=== PATIENT | male | born 1975 | race African-American/Black ===

== ENCOUNTER → 2017-09-22 | Outpatient (CLI) | payer OTHER ==
--- NOTE | 2017-09-22 21:39 | US ---
EXAMINATION TYPE: US carotid duplex BILAT DATE OF EXAM: 09/22/2017 COMPARISON: NONE CLINICAL HISTORY: 42-year-old male [id number] stenosis of right carotid artery. Technique: Carotid duplex ultrasound examination. Indirect Doppler criteria was utilized. FINDINGS: EXAM MEASUREMENTS: RIGHT: Peak Systolic Velocity (PSV) cm/sec ----- Right CCA: 83.1 ----- Right ICA: 74.7 ----- Right ECA: 98.9 ICA/CCA ratio: 0.9 RIGHT: End Diastole cm/sec ----- Right CCA: 20.4 ----- Right ICA: 31.5 ----- Right ECA: 14.2 LEFT: Peak Systolic Velocity (PSV) cm/sec ----- Left CCA: 82.0 ----- Left ICA: 61.7 ----- Left ECA: 58.8 ICA/CCA ratio: 0.8 LEFT: End Diastole cm/sec ----- Left CCA: 22.6 ----- Left ICA: 26.4 ----- Left ECA: 13.6 VERTEBRALS (direction of flow): Right Vertebral: Antegrade Left Vertebral: Antegrade Rhythm: Arrhythmia Pattern Chain Maker Supervisor notes: Patient has thick neck. No elevated velocities, no evident plaque. IMPRESSION: No significant plaque at either bifurcation or hemodynamically significant stenosis appreciated in ei ther internal carotid artery. Criteria for Assigning % of Stenosis / Diameter reduction (Estimation based on the indirect measurements of the internal carotid artery velocities (ICA PSV). 1. Normal (no stenosis)=ICA PSV < 125 cm/s: ratio < 2.0: ICA EDV<40 cm/s. 2. Less than 50% stenosis=ICA PSV < 125 cm/s: ratio < 2.0: ICA EDV<40 cm/s. 3. 50 to 69% stenosis=ICA PSV of 125 to 230 cm/s: ration 2.0 ? 4.0: ICA EDV 40-100 cm/s. 4. Greater than 70% stenosis to near occlusion= ICA PSV > 230 cm/s: ratio > 4.0: ICA EDV > 100 cm/s. 5. Near occlusion= ICA PSV velocities may be low or undetectable: variable ratio and ICA EDV. 6. Total occlusion=unable to detect flow.
== END | disposition home or self-care (01) ==
LOC: RADUSWWP 15:30
PROVIDERS: ATTEND Family Medicine
DX: I65.23 Occlusion and stenosis of bilateral carotid arteries (principal); Z88.8 Allergy status to other drugs, medicaments and biological substances
CPT/HCPCS: 93880

== ENCOUNTER 2018-05-25 15:07 | Emergency (ER) | payer OTHER ==
[2018-05-25 16:15] VITALS: RESP 18
[2018-05-25] MEDS ORDERED: LIDOCAINE 1% INJ 10MG/ML (20 ML MDV) SQ ONE (18:29)
[2018-05-25] MEDS ORDERED: KETOROLAC 30 MG/ML 1 ML VIAL IM STA (18:30)
[2018-05-25] MEDS ORDERED: HYDROcodone/APAP 5-325MG 1 EACH TAB PO STA (18:30)
[2018-05-25] MEDS ORDERED: SULFAMETH-TMP DS STARTER PACK 2 TAB BTL PO STA (19:24)
--- NOTE | 2018-05-25 19:26 | ED ---
Skin/Abscess/FB HPI - General Chief complaint: Skin/Abscess/Foreign Body Stated complaint: Lump on tail bone Time Seen by Provider: 05/25/18 17:57 Source: patient Mode of arrival: ambulatory Limitations: no limitations - History of Present Illness Initial comments: 43-year-old male patient presents to the emergency department today for evaluation of "cyst" to the tailbone area. Patient states that 3 days ago he started developing pain and swelling to the area. Patient states her last couple days he has had some purulent drainage. Patient states he has been chilled and feverish but has not checked his temperature. Patient denies history of similar lesion to the tailbone area, but did have an abscess to the head that had to be surgically drained. Patient denies known history of MRSA. Patient does report history of diabetes, states that sugars are well-controlled with medication and diet. Patient denies any pain with bowel movements. Patient denies any recent rash, shortness breath, chest pain, abdominal pain, nausea, vomiting, diarrhea, constipation, back pain, numbness, tingling, dizziness, weakness, hematuria, dysuria, urinary urgency, urinary frequency, headache, visual changes, or any other complaints. - Related Data Home Medications Medication Instructions Recorded Confirmed Insulin Aspart [NovoLOG] 20 unit SQ AC-TID 02/10/16 05/25/18 Ibuprofen [Motrin Ib] 800 mg PO ONCE PRN 05/25/18 05/25/18 Insulin Glargine,Hum.rec.anlog 40 units SQ HS 05/25/18 05/25/18 [Basaglar Kwikpen U-100] Lisinopril [Zestril] 5 mg PO DAILY 05/25/18 05/25/18 metFORMIN HCL [Glucophage] 500 mg PO AC-LUNCH 05/25/18 05/25/18 Previous Rx's Medication Instructions Recorded Hydrocodone/Acetaminophen [[place] 1 tab PO Q6HR PRN #12 tab 05/25/18 5-325] Sulfamethoxazole/Trimethoprim 2 each PO BID #40 tablet 05/25/18 [Bactrim DS 800-160 mg] Allergies Allergy/AdvReac Type Severity Reaction Status Date / Time No Known Allergies Allergy Verified 05/25/18 17:45 Review of Systems ROS Statement: Those systems with pertinent positive or pertinent negative responses have been documented in the HPI. ROS Other: All systems not noted in ROS Statement are negative. Past Medical History Past Medical History: Diabetes Mellitus History of Any Multi-Drug Resistant Organisms: None Reported Past Surgical History: No Surgical Hx Reported Past Anesthesia/Blood Transfusion Reactions: No Reported Reaction Past Psychological History: No Psychological Hx Reported Smoking Status: Current every day smoker Past Alcohol Use History: None Reported Past Drug Use History: None Reported General Exam Limitations: no limitations General appearance: alert, in no apparent distress, other (This is a well- developed, well-nourished adult male patient in no acute distress. Vital signs upon presentation are temperature 99.1F, pulse 100, respirations 18, blood pressure 198/77, pulse ox 98% on room air.) Respiratory exam: Present: normal lung sounds bilaterally. Absent: respiratory distress, wheezes, rales, rhonchi, stridor Cardiovascular Exam: Present: regular rate, normal rhythm, normal heart sounds. Absent: systolic murmur, diastolic murmur, rubs, gallop, clicks Neurological exam: Present: alert, oriented X3, CN II-XII intact Psychiatric exam: Present: normal affect, normal mood Skin exam: Present: warm, dry, intact, normal color. Absent: rash Expanded Type of lesion: Present: abscess (Patient has presence of pilonidal abscess, purulent drainage noted, induration and cellulitis extending approximately 7cm x 7cm.) Course Vital Signs 05/25/18 05/25/18 16:12 19:26 Temperature 99.1 F 98.5 F Pulse Rate 100 90 Respiratory 18 18 Rate Blood Pressure 198/77 138/79 O2 Sat by Pulse 98 Oximetry Procedures - Incision & Drainage Consent Obtained: verbal consent Time Out Performed?: Yes Indication: Pilonidal abscess Site: other (upper gluteal cleft) Size (cm): 7 Anesthetic Used: lidocaine 1% Amount (mLs): 15 I&D Cleaning Method: Betadine Scalpel Used: #11 Needle Aspiration Performed?: No Irrigation Performed?: No I&D Drainage Obtained: Pus, Blood Packing: Plain (1") Culture Obtained?: Yes Patient Tolerated Procedure: well Medical Decision Making - Medical Decision Making 43-year-old male patient presented to the emergency department today for evaluation of pilonidal abscess. Physical examination did reveal a 7 cm x 7 cm area of induration and cellulitis with a centralized area of fluctuance. Did perform incision and drainage, did get a large amount of pus and blood from the area. This was cultured. Patient was started on Bactrim. Patient will be referred to general surgeon to have further evaluation of the abscess. Patient is given explicit instructions regarding sitz baths, warm compresses, and packing. Return parameters were discussed in detail. He verbalizes understanding and agrees with this plan. Disposition Clinical Impression: Pilonidal abscess Disposition: HOME SELF-CARE Condition: Good Instructions: Pilonidal Cyst (ED), Abscess (ED) Additional Instructions: Warm sitz baths with Epsom salt soaks. Apply hot compresses unable to take a bath. Complete antibiotic prescription and full. Follow-up with the surgeon as soon as possible. Return to the emergency department for any new, worsening , or concerning symptoms. Prescriptions: Hydrocodone/Acetaminophen [[place] 5-325] 1 tab PO Q6HR PRN #12 tab PRN Reason: Pain Sulfamethoxazole/Trimethoprim [Bactrim DS 800-160 mg] 2 each PO BID #40 tablet Is patient prescribed a controlled substance at d/c from ED?: Yes When asked, does pt state using other controlled substances?: No If prescribed controlled substance>3 days was MAPS reviewed?: Prescribed <3 Days If opioid is for acute pain is fill amount 7 days or less?: Yes If Rx opioid, was Start Talking consent form obtained?: Yes Referrals: Poppy Brown III, MD [Primary Care Provider] - 1-2 days Nate Engle MD [STAFF PHYSICIAN] - 1-2 days Time of Disposition: 19:26
[2018-05-25 19:28] VITALS: BP 138/79; PULSE 90; TEMP 98.5
== END 2018-05-25 19:45 | disposition home or self-care (01) ==
LOC: EC 15:07
DX: L05.01 Pilonidal cyst with abscess (principal); E11.9 Type 2 diabetes mellitus without complications; F17.200 Nicotine dependence, unspecified, uncomplicated; Z79.4 Long term (current) use of insulin; Z79.899 Other long term (current) drug therapy
CPT/HCPCS: 87070; 87205; 99283; 10080; 96372; J2001; J1885

== ENCOUNTER 2018-06-25 06:17 | Day surgery (SDC) | payer OTHER ==
[2018-06-22 11:20] VITALS: BMI 33.0
[~2018-06-25 06:17] MED LIST: HEPARIN SODIUM,PORCINE 5,000 UNIT/ML 1 ML VIAL SQ ONE
[2018-06-25] MEDS ORDERED: SCOPOLAMINE 1.5MG/72HR PATCH TRANSDERM ONE (06:23)
[2018-06-25] MEDS ORDERED: DEXAMETHASONE SOD PHOSPHATE 10 MG/ML 1 ML VIAL IV ONE (06:23)
[2018-06-25] MEDS ORDERED: LIDOCAINE 1% 20 ML VIAL (10MG/ML) FOR IV START INTRADERMA PRN (06:23)
[2018-06-25] MEDS ORDERED: ONDANSETRON 4 MG/2 ML VIAL IVP ONE (06:23)
[2018-06-25] MEDS: LACTATED RINGERS 1,000 ML IV SCH ×2 (06:50→09:59)
[2018-06-25] MEDS ORDERED: INSULIN ASPART 100 UNIT/ML 1 ML 10 ML VIAL SQ ONE (06:55)
[2018-06-25 07:07] LABS: Glucose,Whole Blood 347 mg/dL (75-99)
[2018-06-25 07:13] VITALS: RESP 16
[2018-06-25] MEDS ORDERED: BUPIVACAIN-EPI 0.25%-1:200,000 30 ML VIAL SQ ONE ×2 (07:23→08:09)
[2018-06-25] MEDS ORDERED: LIDOCAINE 1% INJ 10MG/ML (20 ML MDV) ONE (07:40)
[2018-06-25] MEDS ORDERED: MIDAZOLAM 2 MG/2 ML VIAL ONE (07:40)
[2018-06-25] MEDS ORDERED: SUCCINYLCHOLINE CHLORIDE VIAL 200 MG/10 ML VIAL IV ONE (07:40)
[2018-06-25] MEDS ORDERED: PROPOFOL 10 MG/ML 20 ML VIAL IV ONE (07:40)
[2018-06-25] MEDS ORDERED: fentaNYL (PF) 50 MCG/ML 2 ML AMP ONE (07:40)
[2018-06-25 08:42] VITALS: TEMP 97.3
[2018-06-25] MEDS: HYDROmorphone 0.5 MG/0.5 ML SYRINGE IVP PRN ×2 (09:22→09:33)
[2018-06-25 10:01] LABS: Glucose,Whole Blood 270 mg/dL (75-99)
[2018-06-25 10:41] VITALS: BP 115/67; PULSE 71
[2018-06-25] MEDS ORDERED: HYDROcodone/APAP 7.5-325MG 1 EACH TAB PO ONE ×2 (10:55→11:00)
--- NOTE | 2018-07-03 15:45 | P.GSHP ---
History of Present Illness H&P Date: 07/03/18 Chief Complaint: Chronically infected pilonidal cyst Is a [age] male who's had issues with a chronically infected pollinosis. Patient presents today for excision. Patient aware the risk of wound infection. He understands that we'll be packed after surgery. Past Medical History Past Medical History: Diabetes Mellitus History of Any Multi-Drug Resistant Organisms: None Reported Past Surgical History: No Surgical Hx Reported Additional Past Surgical History / Comment(s): Cyst removed from head. Tip of finger on left hand cut off. Past Anesthesia/Blood Transfusion Reactions: No Reported Reaction Past Psychological History: No Psychological Hx Reported Smoking Status: Current every day smoker Past Alcohol Use History: None Reported Additional Past Alcohol Use History / Comment(s): Has been smoking 1/2 PPD for 20 yrs. Past Drug Use History: Marijuana Additional Drug Use History / Comment(s): Uses Marijuana daily X1. - Past Family History Mother Family Medical History: Hypertension Father Family Medical History: Cancer Additional Family Medical History / Comment(s): Leukemia Medications and Allergies Home Medications Medication Instructions Recorded Confirmed Type Insulin Aspart [NovoLOG] 20 unit SQ AC-TID 02/10/16 06/22/18 History Ibuprofen [Motrin Ib] 800 mg PO ONCE PRN 05/25/18 06/22/18 History Insulin Glargine,Hum.rec.anlog 40 units SQ HS 05/25/18 06/22/18 History [Basaglar Kwikpen U-100] Lisinopril [Zestril] 5 mg PO QAM 05/25/18 06/25/18 History metFORMIN HCL [Glucophage] 500 mg PO AC-LUNCH 05/25/18 06/22/18 History Augmentin (Unknown Dose) 1 tab PO BID 06/22/18 06/25/18 History HYDROcodone/APAP 7.5-325MG [[place] 1 tab PO Q6H PRN 06/22/18 06/22/18 History 7.5-325] Docusate [Colace] 100 mg PO BID #20 capsule 06/25/18 Rx HYDROcodone/APAP 7.5-325MG [[place] 1 tab PO Q4H PRN 3 Days #18 tab 06/25/18 Rx 7.5-325] Allergies Allergy/AdvReac Type Severity Reaction Status Date / Time No Known Allergies Allergy Verified 06/22/18 11:25 Surgical - Exam Vital Signs Temp Pulse Resp BP Pulse Ox 97.7 F 80 16 137/86 99 06/25/18 06:50 06/25/18 06:50 06/25/18 06:50 06/25/18 06:50 06/25/18 06:50 - General well developed, well nourished, no distress - Eyes PERRL - ENT normal pinna - Neck no masses - Respiratory normal expansion - Cardiovascular Rhythm: regular - Abdomen Abdomen: soft, non tender - Integumentary Chronically infected pilonidal cyst Assessment and Plan Assessment: Chronically infected pilonidal cyst. We'll perform excision. Patient is aware that we'll be packed postoperatively and will require daily wound care.
--- NOTE | 2018-07-03 15:47 | P.OP ---
Date of Procedure: 06/25/18 Preoperative Diagnosis: Chronically infected pilonidal cyst Postoperative Diagnosis: Chronically infected pilonidal cyst Procedure(s) Performed: Excision of chronically infected pilonidal cyst Anesthesia: MAC Surgeon: Nate Engle Estimated Blood Loss (ml): 10 Pathology: other (Pilonidal cyst) Condition: stable Disposition: PACU Description of Procedure: The patient's placed on the operative table in the supine position. He received general anesthesia. His then placed in prone position. Patient's perineum and Possis reprepped and draped in sterile fashion. Elliptical skin incision was made around the pilonidal cyst. Using left cautery the was dissected down level of the coccyx. The specimens of pathology. The wound was hemostased. There is no bleeding seen. The wound was then packed. Patient top she will was sent to recovery in stable condition.
== END 2018-06-25 11:26 | disposition home or self-care (01) ==
LOC: OR 06:17
PROVIDERS: ATTEND Surgery
DX: L05.01 Pilonidal cyst with abscess (principal); F17.210 Nicotine dependence, cigarettes, uncomplicated; E11.9 Type 2 diabetes mellitus without complications; Z79.4 Long term (current) use of insulin; Z79.891 Long term (current) use of opiate analgesic; Z79.899 Other long term (current) drug therapy
CPT/HCPCS: 88304; 11770; J2250; J0330; J1644; J1100; J0690; J2405; J2001; J3010; J2704; J1170

== ENCOUNTER 2018-11-05 11:27 | Emergency (ER) | payer OTHER ==
[2018-11-05 11:32] VITALS: TEMP 98.4
[2018-11-05] MEDS ORDERED: SODIUM CHLORIDE 0.9% 1,000 ML IV STA (11:58)
--- NOTE | 2018-11-05 12:01 | ED ---
Headache HPI - General Chief Complaint: Headache Stated Complaint: lightheaded/near syncope Time Seen by Provider: 11/05/18 11:52 Source: patient, RN notes reviewed Mode of arrival: ambulatory Limitations: no limitations - History of Present Illness Initial Comments: 43-year-old male presents emergency Department chief complaint of intermittent headaches, dizziness. Patient states symptoms have been on and off for last 3 weeks. Patient states symptoms are worse when he bends over and stands up. He denies any major URI symptoms no fevers or chills. He states he relates this to migraines that he has no official diagnosis. Patient has a history of hypertension and hyperlipidemia. Patient does not check his blood sugar and regular basis. Denies any current nausea vomiting diarrhea constipation no focal weakness no blurred vision. - Related Data Home Medications Medication Instructions Recorded Confirmed INSULIN ASPART (NovoLOG) [NovoLOG] 22 unit SQ AC-TID 02/10/16 11/05/18 Insulin Glargine,Hum.rec.anlog 45 units SQ HS 05/25/18 11/05/18 [Basaglar Kwikpen U-100] Lisinopril [Zestril] 5 mg PO QAM 05/25/18 11/05/18 metFORMIN HCL [Glucophage] 500 mg PO AC-LUNCH 05/25/18 11/05/18 Previous Rx's Medication Instructions Recorded Meclizine [Antivert] 25 mg PO TID PRN #15 tab 11/05/18 Allergies Allergy/AdvReac Type Severity Reaction Status Date / Time No Known Allergies Allergy Verified 11/05/18 11:54 Review of Systems ROS Statement: Those systems with pertinent positive or pertinent negative responses have been documented in the HPI. ROS Other: All systems not noted in ROS Statement are negative. Past Medical History Past Medical History: Diabetes Mellitus History of Any Multi-Drug Resistant Organisms: None Reported Past Surgical History: No Surgical Hx Reported Additional Past Surgical History / Comment(s): Cyst removed from head. Tip of finger on left hand cut off. Past Anesthesia/Blood Transfusion Reactions: No Reported Reaction Past Psychological History: No Psychological Hx Reported Smoking Status: Current every day smoker Past Alcohol Use History: None Reported Past Drug Use History: Marijuana - Past Family History Mother Family Medical History: Hypertension Father Family Medical History: Cancer Additional Family Medical History / Comment(s): Leukemia General Exam Limitations: no limitations General appearance: alert, in no apparent distress Head exam: Present: atraumatic, normocephalic, normal inspection Eye exam: Present: normal appearance, PERRL, EOMI. Absent: scleral icterus, conjunctival injection, periorbital swelling ENT exam: Present: normal exam, normal oropharynx, mucous membranes moist Neck exam: Present: normal inspection, full ROM. Absent: tenderness, meningismus, lymphadenopathy Respiratory exam: Present: normal lung sounds bilaterally. Absent: respiratory distress, wheezes, rales, rhonchi, stridor Cardiovascular Exam: Present: regular rate, normal rhythm, normal heart sounds. Absent: systolic murmur, diastolic murmur, rubs, gallop, clicks Neurological exam: Present: alert, oriented X3, CN II-XII intact, reflexes normal, other (Finger to nose intact bilaterally without over shooting). Absent: motor sensory deficit Skin exam: Present: warm, dry, intact, normal color. Absent: rash Course Vital Signs 11/05/18 11/05/18 11/05/18 11:31 11:45 12:00 Temperature 98.4 F Pulse Rate 76 67 Respiratory 20 8 L Rate Blood Pressure 160/94 133/110 O2 Sat by Pulse 99 99 Oximetry 11/05/18 11/05/18 12:30 12:43 Temperature Pulse Rate 75 58 L Respiratory 14 Rate Blood Pressure 138/94 O2 Sat by Pulse 99 Oximetry Medical Decision Making - Medical Decision Making 43-year-old male presented from for intermittent headache, dizziness. Patient had CT is concerned about possible mass. Patient CT unremarkable was unremarkable patient is asymptomatic at this time will be given Antivert for her Vertigo. Return parameters were discussed. - Lab Data Result diagrams: 11/05/18 12:18 11/05/18 12:18 Lab Results 11/05/18 11/05/18 11/05/18 Range/Units 12:18 12:18 12:18 WBC 6.0 (3.8-10.6) k/uL RBC 4.98 (4.30-5.90) m/uL Hgb 13.7 (13.0-17.5) gm/dL Hct 39.7 (39.0-53.0) % MCV 79.7 L (80.0-100.0) fL MCH 27.4 (25.0-35.0) pg MCHC 34.4 (31.0-37.0) g/dL RDW 14.0 (11.5-15.5) % Plt Count 205 (150-450) k/uL Neutrophils % 66 % Lymphocytes % 25 % Monocytes % 5 % Eosinophils % 2 % Basophils % 0 % Neutrophils # 4.0 (1.3-7.7) k/uL Lymphocytes # 1.5 (1.0-4.8) k/uL Monocytes # 0.3 (0-1.0) k/uL Eosinophils # 0.1 (0-0.7) k/uL Basophils # 0.0 (0-0.2) k/uL Sodium 140 (137-145) mmol/L Potassium 4.3 (3.5-5.1) mmol/L Chloride 111 H (98-107) mmol/L Carbon Dioxide 24 (22-30) mmol/L Anion Gap 5 mmol/L BUN 14 (9-20) mg/dL Creatinine 0.78 (0.66-1.25) mg/dL Est GFR (CKD-EPI)AfAm >90 (>60 ml/min/1.73 sqM) Est GFR (CKD-EPI)NonAf >90 (>60 ml/min/1.73 sqM) Glucose 152 H (74-99) mg/dL Calcium 9.2 (8.4-10.2) mg/dL Total Bilirubin 0.9 (0.2-1.3) mg/dL AST 21 (17-59) U/L ALT 25 (21-72) U/L Alkaline Phosphatase 85 (38-126) U/L Troponin I <0.012 (0.000-0.034) ng/mL Total Protein 6.8 (6.3-8.2) g/dL Albumin 3.9 (3.5-5.0) g/dL - EKG Data EKG Comments: EKG performed at 12:14 normal sinus rhythm with a rate of 72 MT 144 QRS 86 QT/QTC 386/422 Disposition Clinical Impression: Vertigo, Headache Disposition: HOME SELF-CARE Condition: Stable Instructions (If sedation given, give patient instructions): Acute Headache (ED) Additional Instructions: Please return to the Emergency Department if symptoms worsen or any other concerns. Prescriptions: Meclizine [Antivert] 25 mg PO TID PRN #15 tab PRN Reason: Vertigo Is patient prescribed a controlled substance at d/c from ED?: No Referrals: Poppy Brown III, MD [Primary Care Provider] - 1-2 days Time of Disposition: 13:25
--- NOTE | 2018-11-05 12:38 | CT ---
EXAMINATION TYPE: CT brain wo con DATE OF EXAM: 11/05/2018 COMPARISON: None INDICATION: Dizziness and headache x 3 weeks. DLP: 1160.4 mGycm, Automated exposure control for dose reduction was used. CONTRAST: None CT of the brain is performed utilizing 3 mm thick sections through the posterior fossa and 3 mm thick sections through the remaining calvarium. Study is performed within 24 hours of arrival to the hosp [facility]. No abnormal hyperdensity is present to suggest an acute intracranial hemorrhage. No mass lesion is evident. No acute infarcts are evident. Ventricles and sulci are appropriate for the patient age. Paranasal sinuses and mastoid air cells within the [id number] are clear. IMPRESSIONS: 1. Normal CT Brain
[2018-11-05 12:56] LABS: ALT 25 U/L (21-72); AST 21 U/L (17-59); Albumin 3.9 g/dL (3.5-5.0); Alkaline Phosphatase 85 U/L (38-126); Anion Gap 5 mmol/L; Blood Urea Nitrogen 14 mg/dL (9-20); Calcium 9.2 mg/dL (8.4-10.2); Carbon Dioxide 24 mmol/L (22-30); Chloride 111 mmol/L (98-107); Glucose 152 mg/dL (74-99); Potassium 4.3 mmol/L (3.5-5.1); Sodium 140 mmol/L (137-145); Total Bilirubin 0.9 mg/dL (0.2-1.3); Total Protein 6.8 g/dL (6.3-8.2)
[2018-11-05 13:03] LABS: Basophils % (A) 0 %; Eosinophils # (A) 0.1 k/uL (0-0.7); Eosinophils % (A) 2 %; HCT 39.7 % (39.0-53.0); HGB 13.7 gm/dL (13.0-17.5); Lymphocytes # (A) 1.5 k/uL (1.0-4.8); Lymphocytes % (A) 25 %; MCH 27.4 pg (25.0-35.0); MCHC 34.4 g/dL (31.0-37.0); MCV 79.7 fL (80.0-100.0); Mean Platelet Volume 8.2; Monocytes # (A) 0.3 k/uL (0-1.0); Monocytes % (A) 5 %; Neutrophils % (A) 66 %; Platelet Count 205 k/uL (150-450); RBC 4.98 m/uL (4.30-5.90)
[2018-11-05 13:43] VITALS: BP 144/91; PULSE 76; RESP 18
== END 2018-11-05 13:43 | disposition home or self-care (01) ==
LOC: EC 11:27
DX: R51 Headache (principal); R42 Dizziness and giddiness; I10 Essential (primary) hypertension; E11.9 Type 2 diabetes mellitus without complications; F17.200 Nicotine dependence, unspecified, uncomplicated; Z79.4 Long term (current) use of insulin; Z79.899 Other long term (current) drug therapy; Z98.890 Other specified postprocedural states
CPT/HCPCS: 36415; 70450; 80053; 84484; 85025; 93005; 96360; 99284

== ENCOUNTER 2021-11-13 08:17 | Emergency (ER) | payer OTHER ==
[2021-11-13 08:25] VITALS: TEMP 98.4
[2021-11-13] MEDS ORDERED: KETOROLAC 15 MG/ML 1 ML VIAL IM STA (09:09)
--- NOTE | 2021-11-13 09:55 | XR ---
Right shoulder HISTORY: Pain 3 views the right shoulder There is arthropathy of the acromioclavicular joint. No fracture or dislocation. Right lung apex as v isualized is normal. Bone mineralization, alignment, joint spaces maintained. There is overlying dee dee fact. Question some mild spurring at the inferior aspect of the humeral head. There may be pseudocyst formation at the greater tuberosity. IMPRESSION: Osteoarthritic change of the acromioclavicular joint and possibly glenohumeral joint, [facility].
--- NOTE | 2021-11-13 10:28 | ED ---
Extremity Problem HPI - General Chief complaint: Extremity Problem,Nontraumatic Stated complaint: lightheaded, shoulder pain Time Seen by Provider: 11/13/21 08:28 Source: patient, RN notes reviewed, old records reviewed Mode of arrival: ambulatory Limitations: no limitations - History of Present Illness Initial comments: Patient is a 46-year-old male, history of diabetes, presenting to the emergency Department with complaints of right shoulder pain for the past 2 days. Patient states he took a nap 2 days ago, when he woke up he was having increased and right shoulder pain, difficulty with movement. He states over the past 2 days this pain has intensified, he is having a hard time moving it. He denies any falls or other trauma. Denies previous surgeries, he is mostly right-hand dominant. Of note, when patient states when he woke up from his nap 2 days ago, he was using an icy hot rub on the shoulder, he did feel little lightheaded but thought it was from the cream that he put on. He denies any lightheadedness or dizziness today, no chest pain or shortness of breath. He is regular about checking his sugars and they have been normal. Patient has no further complaints today. - Related Data Home Medications Medication Instructions Recorded Confirmed INSULIN ASPART (NovoLOG) [NovoLOG] 22 unit SQ AC-TID 02/10/16 11/05/18 Insulin Glargine,Hum.rec.anlog 45 units SQ HS 05/25/18 11/05/18 [Basaglar Kwikpen U-100] lisinopriL [Zestril] 5 mg PO QAM 05/25/18 11/05/18 metFORMIN HCL [Glucophage] 500 mg PO AC-LUNCH 05/25/18 11/05/18 Previous Rx's Medication Instructions Recorded Meclizine [Antivert] 25 mg PO TID PRN #15 tab 11/05/18 traMADol HCl [Ultram] 50 mg PO Q6H PRN #12 tab 11/13/21 Allergies Allergy/AdvReac Type Severity Reaction Status Date / Time No Known Allergies Allergy Verified 11/13/21 08:25 Review of Systems ROS Statement: Those systems with pertinent positive or pertinent negative responses have been documented in the HPI. ROS Other: All systems not noted in ROS Statement are negative. Past Medical History Past Medical History: Diabetes Mellitus History of Any Multi-Drug Resistant Organisms: None Reported Past Surgical History: No Surgical Hx Reported Additional Past Surgical History / Comment(s): Cyst removed from head. Tip of finger on left hand cut off. Past Anesthesia/Blood Transfusion Reactions: No Reported Reaction Past Psychological History: No Psychological Hx Reported Smoking Status: Current every day smoker Past Alcohol Use History: Occasional Past Drug Use History: Marijuana - Past Family History Mother Family Medical History: Hypertension Father Family Medical History: Cancer Additional Family Medical History / Comment(s): Leukemia General Exam - General Exam Comments Initial Comments: GENERAL: Patient is well-developed and well-nourished. Patient is nontoxic and in no acute distress. HEAD: Atraumatic, normocephalic. EYES: Pupils equal round and reactive to light, extraocular movements intact, sclera anicteric, conjunctiva are normal. Eyelids were unremarkable. NECK: Normal range of motion, supple without lymphadenopathy or JVD. No neck pain on palpation. LUNGS: Unlabored respirations. Breath sounds clear to auscultation bilaterally and equal. No wheezes rales or rhonchi. HEART: Regular rate and rhythm without murmurs, rubs or gallops. MUSCULOSKELETAL: She has very limited active range of motion of the right shoulder, he is tender to palpation of the anterior, superior and lateral portions of the right shoulder. He has pain with resisted internal and external rotation. He is neurovascular intact. No obvious deformity or redness. NEUROLOGICAL: Patient is alert and oriented x 3. Normal speech, normal gait. PSYCH: Normal mood, normal affect. SKIN: Warm, Dry, normal turgor, no rashes or lesions noted. Limitations: no limitations Course Vital Signs 11/13/21 08:23 Temperature 98.4 F Pulse Rate 94 Respiratory 20 Rate Blood Pressure 146/85 O2 Sat by Pulse 99 Oximetry Medical Decision Making - Medical Decision Making Patient is a 46-year-old male here with right shoulder pain for the past 2 days. No injuries or trauma. X-rays of the right shoulder show osteoarthritic changes of the before meals joint, possible pseudocyst on the greater tuberosity. Given a shot of Toradol for discomfort. I will give him a sling. Patient is a follow-up with orthopedics, will give him referral. In the meantime continue with anti- inflammatories. Patient is agreeable with this plan of care and he is stable for discharge. Disposition Clinical Impression: Right shoulder pain Disposition: HOME SELF-CARE Condition: Stable Instructions (If sedation given, give patient instructions): Shoulder Pain (ED) Additional Instructions: Please return to the Emergency Department if symptoms worsen or any other concerns. Recommend anti-inflammatories such as Motrin or Aleve for discomfort, if pain is more severe, may take tramadol. Follow-up with orthopedic as discussed. Prescriptions: traMADol HCl [Ultram] 50 mg PO Q6H PRN #12 tab PRN Reason: Pain Is patient prescribed a controlled substance at d/c from ED?: Yes When asked, does pt state using other controlled substances?: No If prescribed controlled substance>3 days was MAPS reviewed?: Yes If opioid is for acute pain is fill amount 7 days or less?: Yes If Rx opioid, was Start Talking consent form obtained?: Yes Referrals: Juana Saleh MD [Primary Care Provider] - 1-2 days Geovanny Rodriguez DO [Doctor of Osteopathic Medicine] - 1-2 days Time of Disposition: 10:28
[2021-11-13 10:45] VITALS: BP 149/85; PULSE 62; RESP 17
== END 2021-11-13 10:45 | disposition home or self-care (01) ==
LOC: EC 08:17
DX: M25.511 Pain in right shoulder (principal); E11.9 Type 2 diabetes mellitus without complications; F17.200 Nicotine dependence, unspecified, uncomplicated; F12.90 Cannabis use, unspecified, uncomplicated; Z79.4 Long term (current) use of insulin; Z79.84 Long term (current) use of oral hypoglycemic drugs; Z79.899 Other long term (current) drug therapy
CPT/HCPCS: 73030; 99283; 96372; J1885

== ENCOUNTER → 2022-09-04 | Outpatient (CLI) | payer OTHER ==
--- NOTE | 2022-09-05 08:09 | US ---
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 Diabetic, cy st TECHNIQUE: Multiple sonographic images of the kidneys and bladder are obtained. FINDINGS: EXAM MEASUREMENTS: Right Kidney: 11.4 x 4.8 x 6.9 cm Left Kidney: 11.6 x 5.6 x 5.8 cm Right Kidney: Lower pole cortical cyst measuring 3.0 x 3.1 x 2.9 cm. No hydronephrosis. Left Kidney: No hydronephrosis or masses seen Bladder: anechoic Bilateral Jets seen: Left only IMPRESSION: No hydronephrosis. Benign 3.1 cm lower pole cortical cyst on the right.
== END | disposition home or self-care (01) ==
LOC: RADUSWWP 16:17
PROVIDERS: ATTEND Family Medicine
DX: E11.21 Type 2 diabetes mellitus with diabetic nephropathy (principal); N28.1 Cyst of kidney, acquired; R94.4 Abnormal results of kidney function studies
CPT/HCPCS: 76770